=== PATIENT | male | born 1950 | race Asian ===

== ENCOUNTER → 2019-01-25 | Outpatient (CLI) | payer MEDICARE, OTHER | END | disposition home or self-care (01) | LOC: RADPV 15:06 | PROVIDERS: ATTEND Internal Medicine Pulmonary Disease | DX: I70.0 Atherosclerosis of aorta (principal); R05 Cough ==

== ENCOUNTER → 2019-10-06 | Outpatient (CLI) | payer MEDICARE, OTHER | END | disposition home or self-care (01) | LOC: RADPV 09:40 | PROVIDERS: ATTEND Internal Medicine | DX: N28.1 Cyst of kidney, acquired (principal); N20.0 Calculus of kidney | CPT/HCPCS: 76770 ==